=== PATIENT | male | born 1970 | race Caucasian/White ===

== ENCOUNTER 2017-06-23 15:29 | Emergency (ER) | payer BC ==
[2017-06-23 15:53] VITALS: PULSE 70; O2SAT 96
[2017-06-23] MEDS ORDERED: Hydromorphone 1 mg/ml Ampule IV ONE (15:57)
[2017-06-23] MEDS ORDERED: Adacel Vial IM ONE ×2 (15:57→16:06)
[2017-06-23] MEDS ORDERED: BACIGUENT PACKET TP ONE (15:59)
[2017-06-23] MEDS ORDERED: BACIGUENT PACKET ONE (16:06)
[2017-06-23] MEDS ORDERED: DILAUDID 2 MG INJECTION ONE (16:06)
[2017-06-23 16:12] LABS: BASOPHIL % 0.6 % (0.0-0.4); Basophil (Absolute #) 0.05 (0-0.4); Eosinophil % 1.8 % (0.00-5.0); Eosinophil (Absolute #) 0.14 (0-0.5); Granulocyte Absolute (ANC) 5.25 (1.4-6.9); Granulocytes % 67.2 % (36.0-66.0); Hematocrit 47.1 % (42-50); Hemoglobin 16.1 gm/dl (12.5-18.0); Lymphocyte (Absolute #) 1.66 (1.0-4.6); Lymphocytes % 21.3 % (24.0-44.0); Mean Cell Volume 95.2 fl (78-100); Mean Corpuscular Hemoglobin 32.5 pg (26-32); Mean Corpuscular Hgb Concent. 34.2 g/dl (32-36); Mean Platelet Volume 9.5 fl (6-9.5); Monocyte (Absolute #) 0.71 (0.0-1.3); Monocytes % 9.1 % (0.0-12.0); Platelet Count 228 K/mm3 (150-450); Red Blood Count 4.95 M/mm3 (4.1-5.6); Red Cell Distribution Width 12.4 % (11.5-14.0); White Blood Count 7.8 K/mm3 (4.0-10.5)
[2017-06-23] MEDS ORDERED: TORAdol 30 mg Injection IV ONE (16:13)
[2017-06-23] MEDS ORDERED: TORAdol 30 mg Injection ONE (16:17)
--- NOTE | 2017-06-23 16:19 | ERPHSYRPT ---
- History of Present Illness Time Seen by Provider: 06/23/17 15:50 Source: patient, family (fiance) Patient Subjective Stated Complaint: FELL OFF ROOF APPROX 11 FEET. C/O PAIN TO RIGHT ANKLE. ALSO C/O PAIN TO LEFT ANKLE POSTERIOR. Triage Nursing Assessment: NOTED SWELLING TO RIGHT ANKLE. GOOD PEDAL PULSE AND CAP REFILL. ABRASION NOTED TO POSTERIOR RIGHT ANKLE WITH NO SWELLING. Physician History: CC: fall Hx: 46 y/o patient of Dr Jag Ferrer in [facility]. 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 Isolated injury to ankles, especially the right. No back pain. No neck pain. No head injury. No LOC. No chest or abd pain. Unable to bear weight. Some scrapes on left posterior ankle. Unsure last tetanus vaccine. ALL: None Meds: Metoprolol Surg: Vasectomy, hernia Social: Drank beers today, smoker, works at [employer]. Last drank water 3:30PM, ate peanuts at 10:30AM. Occurred: just prior to arrival Severity of Pain-Max: severe Severity of Pain-Current: moderate Allergies/Adverse Reactions: No Known Drug Allergies Allergy (Unverified 06/23/17 16:41) Home Medications: Metoprolol Tartrate 50 mg [Lopressor 50 MG] 50 mg PO DAILY 06/23/17 [ History] Hx Tetanus, Diphtheria Vaccination/Date Given: No Hx Influenza Vaccination/Date Given: No Hx Pneumococcal Vaccination/Date Given: No - Review of Systems Constitutional: No Fever, No Chills Eyes: No Symptoms Ears, Nose, & Throat: No Symptoms Respiratory: No Cough, No Dyspnea Cardiac: No Chest Pain Abdominal/Gastrointestinal: No Abdominal Pain, No Nausea, No Vomiting Musculoskeletal: Fall, Injury (right ankle), No Back Pain, No Neck Pain Skin: No Rash Neurological: No Headache All Other Systems: Reviewed and Negative - Past Medical History Pertinent Past Medical History: Yes Cardiac History: Hypertension - Past Surgical History Past Surgical History: Yes Gastrointestinal: Hernia Repair Male Surgical History: Vasectomy - Social History Smoking Status: Current every day smoker Exposure to second hand smoke: No Drug Use: none Patient Lives Alone: No - Nursing Vital Signs Nursing Vital Signs: Initial Vital Signs Temperature 97.9 F 06/23/17 15:52 Pulse Rate 70 06/23/17 15:52 Respiratory Rate 16 06/23/17 15:52 Blood Pressure 132/94 06/23/17 15:52 O2 Sat by Pulse Oximetry 96 06/23/17 15:52 Pain Scale Pain Intensity 3 - Evesn Coma Score Best Eye Response ([place]): (4) open spontaneously Best Verbal Response ([place]): (5) oriented Best Motor Response ([place]): (6) obeys commands [place] Total: 15 - Physical Exam General Appearance: alert Head Injury: no evidence of injury Eye Exam: PERRL/EOMI, eyes nml inspection ENT Exam: airway nml, No evidence of ENT injury, No dental injury, No hemotympanum Neck Exam: supple, normal inspection, No mid-line tenderness Respiratory/Chest Exam: normal breath sounds, No chest tenderness Cardiovascular Exam: normal heart sounds, regular rate/rhythm Gastrointestinal Exam: soft, No tenderness, No distention Genitalia Exam: normal genital exam Back Exam: normal inspection, normal range of motion Extremity Exam: tenderness (right lateral malleolus tender, swollen. Pulse intact. No foot tenderness. Abrasion left achilles area. ROM intact without significant left tenderness. 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 nml as tested, sensation nml, No motor deficits Skin Exam: warm, dry, No rash SpO2 Interpretation: normal SpO2: 96 Oxygen Delivery: Room Air - Course Nursing assessment & vital signs reviewed: Yes Ordered Tests: Active Orders 24 hr Category Date Time Status Cold Application STAT Care 06/23/17 15:57 Active Crutches STAT Care 06/23/17 16:47 Active NPO (ED) STAT Care 06/23/17 15:57 Active Splint STAT Care 06/23/17 15:57 Inactive Splint STAT Care 06/23/17 16:46 Active Wound Care STAT Care 06/23/17 15:59 Active ANKLE (3 VIEWS) Stat Exams 06/23/17 15:57 Taken ANKLE (3 VIEWS) Stat Exams 06/23/17 15:59 Taken CBC W DIFF Stat Lab 06/23/17 16:08 Completed CMP Stat Lab 06/23/17 16:08 Completed ETHYL ALCOHOL Stat Lab 06/23/17 16:08 Completed Medication Summary Discontinued Medications Generic Name Dose Route Start Last Admin Trade Name Freq PRN Reason Stop Dose Admin Bacitracin 0.9 gm 06/23/17 15:59 06/23/17 16:13 Baciguent Packet TP 06/23/17 16:00 0.9 gm STAT ONE Administration Bacitracin Confirm 06/23/17 16:06 Baciguent Packet Administered 06/23/17 16:07 Dose 1 gm .ROUTE .STK-MED ONE Diphtheria/Tetanus/Acell Pertussis 0.5 ml 06/23/17 15:57 06/23/17 16:13 Adacel Vial IM 06/23/17 15:58 0.5 ml .ONCE ONE Administration Diphtheria/Tetanus/Acell Pertussis Confirm 06/23/17 16:06 Adacel Vial Administered 06/23/17 16:07 Dose 0.5 ml IM .STK-MED ONE Hydromorphone HCl 1 mg 06/23/17 15:57 06/23/17 16:13 Hydromorphone 1 Mg/Ml Ampule IV 06/23/17 15:58 Not Given STAT ONE Hydromorphone HCl Confirm 06/23/17 16:06 Dilaudid 2 Mg Injection Administered 06/23/17 16:07 Dose 2 mg .ROUTE .STK-MED ONE Ketorolac Tromethamine 30 mg 06/23/17 16:13 06/23/17 16:18 Toradol 30 Mg Injection IV 06/23/17 16:14 30 mg STAT ONE Administration Ketorolac Tromethamine Confirm 06/23/17 16:17 Toradol 30 Mg Injection Administered 06/23/17 16:18 Dose 30 mg .ROUTE .STK-MED ONE Lab/Rad Data: Laboratory Result Diagrams 06/23/17 16:08 06/23/17 16:08 Laboratory Results 06/23/17 06/23/17 Range/Units 16:08 16:08 WBC 7.8 (4.0-10.5) K/mm3 RBC 4.95 (4.1-5.6) M/mm3 Hgb 16.1 (12.5-18.0) gm/dl Hct 47.1 (42-50) % MCV 95.2 (78-100) fl MCH 32.5 H (26-32) pg MCHC 34.2 (32-36) g/dl RDW 12.4 (11.5-14.0) % Plt Count 228 (150-450) K/mm3 MPV 9.5 (6-9.5) fl Gran % 67.2 H (36.0-66.0) % Lymphocytes % 21.3 L (24.0-44.0) % Monocytes % 9.1 (0.0-12.0) % Eosinophils % 1.8 (0.00-5.0) % Basophils % 0.6 (0.0-0.4) % Basophils # 0.05 (0-0.4) Sodium 140 (137-145) mmol/L Potassium 4.4 (3.5-5.1) mmol/L Chloride 102 (98-107) mEq/L Carbon Dioxide 27 (22-30) mmol/L Anion Gap 16.0 H (5-15) MEQ/L BUN 12 (9-20) mg/dl Creatinine 0.93 (0.66-1.25) mg/dl Estimated GFR > 60 ML/MIN Glucose 98 (74-106) mg/dL Calcium 9.5 (8.4-10.2) mg/dL Total Bilirubin 0.50 (0.2-1.3) mg/d? AST 84 H (17-59) U/L ALT 77 H (0-50) U/L Alkaline Phosphatase 71 (38-126) U/L Serum Total Protein 7.6 (6.3-8.2) mg/dl Albumin 4.5 (3.5-5.0) g/dl Ethyl Alcohol 77 H (0-9) MG/DL - Progress Progress Note: 06/23/17 17:28 No fx per radiologist. Sprian instr given. CAM boot right. Joshua left. Crutches. Motrin. Counseled pt/family regarding: diagnosis, need for follow-up, rad results - Departure Time of Disposition: 17:28 Departure Disposition: Home Clinical Impression: Fall from roof, Right ankle sprain, Abrasion, left ankle, initial encounter Condition: Stable Critical Care Time: No Referrals: DOCTOR,NO FAMILY [NON-STAFF PHY W/O PRIVILEGES] - Instructions: Ankle Sprain (DC), How to Use Crutches Additional Instructions: CRUTCHES 1. Hold your head up and keep your back straight to help keep your balance. 2. When standing, the top of the crutches should fit 2-3 inches below your armpits. 3. Put your weight on the handgrip with your hands; never put any pressure on your armpits. 4. Go slow until you get your balance and become accustomed to crutch walking. 5. Place each crutch tip 4-6 inches to the front and side of each foot. Move both crutch tips forward on each side 12-15 inches from the tip of your injured leg, while simultaneously moving your injured leg 12-15 inches. Move your uninjured leg forward to the level of the crutch tips. SPRAINS/STRAINS/CONTUSIONS 1. Rest the affected area as much as possible for the next few days. 2. Apply ice to the affected area for 20-30 minutes at a time, several times a day. 3. If you receive an elastic wrap, wear it only while awake for comfort and support. Re-wrap the elastic wrap if it feels too tight or too loose. 4. If swelling is present, elevate the affected part above the level of the heart for at least 2 to 3 days. 5. Use splints, slings, or crutches as instructed. 6. Watch for severe swelling, coldness, numbness, and discoloration of the fingers and toes. See your family physician or return to the emergency department if any of these are noted. Ibuprofen for discomfort. CAM boot right. Joshua wrap left. Keep abrasions clean and dry. Follow up with Dr Ferrer Sunday or Sunday as needed. Prescriptions: Ibuprofen 600 mg PO Q6H PRN PRN #24 tablet PRN Reason: Pain
[2017-06-23 16:28] LABS: ALBUMIN 4.5 g/dl (3.5-5.0); ALKALINE PHOSPHATASE 71 U/L (38-126); BLOOD UREA NITROGEN 12 mg/dl (9-20); CHLORIDE 102 mEq/L (98-107); Calcium 9.5 mg/dL (8.4-10.2); Carbon Dioxide 27 mmol/L (22-30); Creatinine 1 0.93 mg/dl (0.66-1.25); ETHYL ALCOHOL 77 MG/DL (0-9); Glucose 98 mg/dL (74-106); Potassium 4.4 mmol/L (3.5-5.1); SGOT/AST 84 U/L (17-59); SGPT/ALT 77 U/L (0-50); SODIUM 140 mmol/L (137-145); Total Protein 7.6 mg/dl (6.3-8.2)
[2017-06-23 17:58] VITALS: BP 128/86
--- NOTE | 2017-06-23 19:16 | XRAY ---
Indication: Pain following fall. Comparison: None 3 views of the left ankle demonstrates minimal anterior lateral soft tissue swelling. No other bony, articular, or soft tissue abnormalities. Comment: Preliminary interpretation was made by [facility]. No discrepancy.
--- NOTE | 2017-06-23 19:18 | XRAY ---
Indication: Pain following fall. Comparison: None 3 views of the right ankle demonstrates anterior lateral soft tissue swelling. No other bony, articular, or soft tissue abnormalities. Comment: Preliminary interpretation was made by [facility]. No discrepancy.
== END 2017-06-23 17:45 | disposition home or self-care (01) ==
LOC: ED 15:29
DX: S93.401A Sprain of unspecified ligament of right ankle, initial encounter (principal); W13.2XXA Fall from, out of or through roof, initial encounter
CPT/HCPCS: 36000; 36415; 73610; 80053; 85025; 90471; 90715; 96374; 99285; G0480; J1170; J1885; L4386; A9270-GY

== ENCOUNTER 2022-09-04 08:21 | Day surgery (SDC) | payer BC ==
--- NOTE | 2022-09-04 08:23 | HP ---
DATE OF SURGERY: 09/04/2022 HISTORY OF PRESENT ILLNESS: The patient is a 51-year-old last colonoscopy several years ago. He has hemorrhoids now, some dark stools at times and some constipation. No new pain. Family history negative for colon cancer. Family history of mother with melanoma. No recent change in bowel movements. PAST MEDICAL HISTORY: Hypertension, neuropathy, constipation. PAST SURGICAL HISTORY: Hernia repair in the past. MEDICATIONS: Ferrous sulfate, Nexium, metoprolol, gabapentin. ALLERGIES: NKDA. FAMILY HISTORY: Melanoma. Negative for colon cancer. SOCIAL HISTORY: No smoking. Occasional alcohol use. REVIEW OF SYSTEMS: Fourteen systems reviewed. No chest pain or palpitations. Other systems negative or noncontributory as above and per preadmission questionnaire. PHYSICAL EXAMINATION: Height 5'9". BMI 27. GENERAL: No acute distress. HEENT: Sclerae nonicteric. EOMI. Oral mucous membranes moist. NECK: No JVD. CHEST: Equal excursion, nonlabored breathing. CVS: Regular rate and rhythm. ABDOMEN: Soft. No peritoneal signs. EXTREMITIES: No significant edema. NEURO: Alert, oriented, moving extremities symmetrically. RECTAL: Deferred timed to endoscopy exam. PSYCH: Appropriate mood and affect. SKIN: Dry. IMPRESSION: Last colonoscopy several years ago, needs screening colonoscopy. He was shown the risk sheet, explained the procedure in detail including but not limited to risk of bleeding or infection, risk of bowel injury or perforation, risk of missed or nondiagnosis or incomplete exam possibly requiring barium enema, other studies or procedures, general risk of anesthesia or sedation, risk of bowel prep but not limited to, consent obtained. Will proceed with outpatient follow up screening colonoscopy under MAC anesthesia.
[2022-09-04] MEDS ORDERED: Lactated Ringers 1,000 ML IV SCH (08:30)
[2022-09-04] MEDS ORDERED: Lactated Ringers 1,000 ML IV ONE (08:53)
[2022-09-04] MEDS ORDERED: DIPRIVAN 200 MG/20 ML IV ONE ×3 (10:40→11:18)
[2022-09-04] MEDS ORDERED: Xylocaine-Mpf 2% 5 Ml Vial ONE (10:40)
[2022-09-04] MEDS ORDERED: SUBLIMAZE 100 MCG/2 ML ONE (11:12)
[2022-09-04 11:56] VITALS: O2SAT 94
[2022-09-04 12:11] VITALS: BP 169/93; PULSE 80
--- NOTE | 2022-09-05 09:24 | OP ---
SURGERY DATE/TIME: 09/04/2022 1103 PREOPERATIVE DIAGNOSIS: Need for follow up screening colonoscopy. POSTOPERATIVE DIAGNOSES: 1) Small early rectal polyp versus hyperplastic lesion. 2) Fair bowel prep. 3) ASA Class II. PROCEDURES: 1) Colonoscopy to cecum. 2) Hot biopsy polypectomy small early rectal polyp versus hyperplastic lesion. 3) Withdrawal time approximately eight minutes. SURGEON: Dr. Daniel Jorge. ANESTHESIA: MAC. ESTIMATED BLOOD LOSS: Minimal. INDICATIONS: As noted above. Risks and benefits explained in detail but not limited to and consent obtained. DESCRIPTION OF PROCEDURE AND FINDINGS: The patient is taken to the endoscopy room. MAC anesthesia induced. It took quite a fair amount of propofol to get him relaxed. Once he is relaxed, after official time out, passed the colonoscope carefully around transverse colon, ascending colon and cecum. Appendiceal orifice and valve well visualized and photo documented. Palpation confirmed the location. Prep overall is fair with a little bit of liquidy semisolid and a few little solid stool throughout the colon slightly limiting the exam but overall fair prep. The scope is slowly and carefully withdrawn over the next eight minutes. No signs of any large polyps, masses or other obstructing lesions. He did have the small 1.5 mm to 2 mm early polyp versus hyperplastic lesion in the rectum removed with hot biopsy forceps with brief bursts of cautery. Scant ooze at the site. Watched it for a few seconds and it appeared to have adequate hemostasis. The scope is withdrawn. The patient tolerated the procedure well. Findings discussed with the family out in the waiting area.
== END 2022-09-04 12:25 | disposition home or self-care (01) ==
LOC: SDC 08:21
PROVIDERS: ATTEND Surgery
DX: Z12.11 Encounter for screening for malignant neoplasm of colon (principal); K62.1 Rectal polyp
CPT/HCPCS: J2704; J3010